=== PATIENT | female | born 1940 | race Caucasian/White ===

== ENCOUNTER 2020-12-18 16:11 | Inpatient (IN) | payer OTHER ==
[~2020-12-18] VITALS: Ht 152.4 cm; Wt 52.2 kg
[2020-12-18 16:52] LABS: HEMOGLOBIN 16.1 gm/dl (12.3-15.3); RED BLOOD COUNT 4.77 M/UL (4.00-5.10); WHITE BLOOD COUNT 7.8 K/UL (4.5-11.0)
[2020-12-18 17:16] LABS: BUN/CREATININE RATIO 13 (0-10)
[2020-12-18 21:50] LABS: BUN/CREATININE RATIO 12 (0-10)
[2020-12-18] MEDS ORDERED: ARICEPT10 MG PO (23:55)
[2020-12-18] MEDS ORDERED: COZAAR100 MG PO (23:56)
[2020-12-18] MEDS ORDERED: ZOLOFT25 MG PO (23:56)
[2020-12-19] MEDS ORDERED: PRESERVISION A1 EACH PO (00:56)
[2020-12-19 05:01] LABS: HEMOGLOBIN 14.2 gm/dl (12.3-15.3); RED BLOOD COUNT 4.46 M/UL (4.00-5.10); WHITE BLOOD COUNT 5.7 K/UL (4.5-11.0)
[2020-12-19 05:26] LABS: BUN/CREATININE RATIO 16 (0-10)
--- NOTE | 2020-12-20 11:00 | NUR ---
OK TO COME OFF TELE FOR MRI PER DR. MADSEN
[2020-12-20 11:36] LABS: BUN/CREATININE RATIO 10 (0-10)
[2020-12-21 13:55] LABS: BUN/CREATININE RATIO 15 (0-10)
[2020-12-22] MEDS ORDERED: ATORVASTATIN CA20 MG PO (12:04)
[2020-12-22] MEDS ORDERED: ASPIRIN EC81 MG PO (12:04)
[2020-12-22] MEDS ORDERED: CLOPIDOGREL75 MG PO (12:04)
[2020-12-22 14:26] LABS: BUN/CREATININE RATIO 12 (0-10)
== END 2020-12-22 16:53 | disposition home health service (06) | DRG 65 ==
LOC: ER1 16:11 → CDU 20:20 → PROG CARE 20:20 → M/S 20:20 → PROG CARE 12-19 01:06 → M/S 12-20 02:45
PROVIDERS: Internal Medicine; Nurse Practitioner Family; Physician Assistant; ADMIT Internal Medicine
DX: I63.332 Cerebral infarction due to thrombosis of left posterior cerebral artery (principal); E44.0 Moderate protein-calorie malnutrition; E87.1 Hypo-osmolality and hyponatremia; Z20.822 Contact with and (suspected) exposure to COVID-19; Z66 Do not resuscitate; G31.84 Mild cognitive impairment of uncertain or unknown etiology; W01.0XXA Fall on same level from slipping, tripping and stumbling without subsequent striking against object, initial encounter; H53.461 Homonymous bilateral field defects, right side; E86.0 Dehydration; F41.9 Anxiety disorder, unspecified; F32.A Depression, unspecified; I10 Essential (primary) hypertension; F03.90 Unspecified dementia, unspecified severity, without behavioral disturbance, psychotic disturbance, mood disturbance, and anxiety; Z82.49 Family history of ischemic heart disease and other diseases of the circulatory system; Z98.890 Other specified postprocedural states; Z79.899 Other long term (current) drug therapy; Z79.82 Long term (current) use of aspirin; Z79.02 Long term (current) use of antithrombotics/antiplatelets
CPT/HCPCS: ECHO; 36415; 70450; 70496; 70498; 70551; 72125; 80048; 80053; 80061; 81001; 82140; 82436; 82550; 82553; 82607; 82746; 83036; 83735; 83874; 83930; 83935; 84100; 84300; 84439; 84443; 84484; 84550; 85025; 85652; 86140; 87086; 93005; 93306; 93880; 96374; 96375; 97110-GP-CQ; 97116; 97116-GP-CQ; 97161; 97165; 99285; J1650; J2405; J7030; Q9967; U0002

== ENCOUNTER → 2021-05-16 | Outpatient (CLI) | payer OTHER ==
[~2021-05-16] MED LIST: ARICEPT10 MG PO; ASPIRIN EC81 MG PO; ATORVASTATIN CA20 MG PO; CLOPIDOGREL75 MG PO; COZAAR100 MG PO; PRESERVISION A1 EACH PO; ZOLOFT25 MG PO
[2021-05-16 12:06] LABS: HEMOGLOBIN 16.8 gm/dl (12.3-15.3); RED BLOOD COUNT 5.02 M/UL (4.00-5.10); WHITE BLOOD COUNT 6.7 K/UL (4.5-11.0)
== END ==
LOC: LAB 11:36
PROVIDERS: Internal Medicine
DX: D47.3 Essential (hemorrhagic) thrombocythemia (principal); D58.2 Other hemoglobinopathies; D50.8 Other iron deficiency anemias; D75.838 Other thrombocytosis
CPT/HCPCS: 36415; 80053; 85027